=== PATIENT | female | born 1940 | race Two or more races ===

== ENCOUNTER → 2017-10-13 | Outpatient (CLI) | payer OTHER ==
[~2017-10-13] MED LIST: ACCUNEB0.63 MG/3 IH; BREO ELLIPTA I1 EACH IH; CLONAZEPAM0.5 MG PO; MUCINEX600 MG PO; VITAMIN C60 MG PO
== END | disposition home or self-care (01) ==
LOC: RAD 14:39
DX: R06.02 Shortness of breath (principal)

== ENCOUNTER 2018-08-25 10:47 | Outpatient (CLI) | payer OTHER | END 2018-08-25 10:51 | disposition home or self-care (01) | LOC: MAMO-SONO 10:47 | DX: Z12.31 Encounter for screening mammogram for malignant neoplasm of breast (principal); Z87.898 Personal history of other specified conditions; N64.89 Other specified disorders of breast; M12.9 Arthropathy, unspecified; M19.90 Unspecified osteoarthritis, unspecified site ==